=== PATIENT | male | born 1980 | race Caucasian/White ===

== ENCOUNTER → 2019-03-01 | Outpatient (CLI) | payer OTHER ==
[2019-03-03 18:06] LABS: T-TRANSGLUTAMINASE (TTG) IGA >100 U/mL (0-3); T-TRANSGLUTAMINASE (TTG) IGG 11 U/mL (0-5)
== END | disposition home or self-care (01) ==
LOC: LAB 15:23 → LAB SHORT 15:23
PROVIDERS: Internal Medicine Hematology & Oncology
DX: D50.9 Iron deficiency anemia, unspecified (principal)
CPT/HCPCS: 83516

== ENCOUNTER 2019-12-11 08:27 | Emergency (ER) | payer OTHER ==
[~2019-12-11] VITALS: Ht 182.9 cm; Wt 99.8 kg
[2019-12-11] MEDS ORDERED: ADMELOG100 UNIT/1 SC (09:28)
[2019-12-11] MEDS ORDERED: Ativan1 MG PO (09:29)
[2019-12-11 09:30] LABS: BASOPHILS ABSOLUTE AUTO 0.03 K/mm3 (0.00-0.23); BASOPHILS PERCENT AUTO 0 % (0-2); Base Excess Venous -9.4 mmol/L; Bicarbonate Venous 16.8 mmol/L (24.0-30.0); EOSINOPHILS PERCENT AUTO 0 % (0-6); Hematocrit 44.3 % (37.0-53.0); Hemoglobin 14.8 g/dL (13.5-17.5); IMMATURE GRAN ABSOLUTE AUTO 0.03 K/mm3 (0.00-0.10); IMMATURE GRAN PERCENT AUTO 0 % (0-1); LYMPHOCYTES ABSOLUTE AUTO 0.65 K/mm3 (0.84-5.20); LYMPHOCYTES PERCENT AUTO 7 % (21-46); MONOCYTES ABSOLUTE AUTO 0.42 K/mm3 (0.16-1.47); MONOCYTES PERCENT AUTO 5 % (4-13); Mean Corpuscular HGB 30.1 pg (26.0-34.0); Mean Corpuscular HGB Conc 33.4 g/dL (31.5-36.5); Mean Corpuscular Volume 90 fL (80-100); Mean Platelet Volume 10.8 fL (9.1-12.4); NEUTROPHILS ABSOLUTE AUTO 8.26 K/mm3 (1.96-9.15); NEUTROPHILS PERCENT AUTO 88 % (41-73); PCO2 Venous 41.9 mmHg (38-42); PO2 Venous 44.2 mmHg (38-42); Platelet Count 271 K/mm3 (150-400); RDW Coefficient Variation 11.9 % (11.7-14.2); RDW Standard Deviation 39.1 fL (35.1-46.3); Red Blood Cell Count 4.91 M/mm3 (4.30-5.90); White Blood Cell Count 9.39 K/mm3 (4.00-11.30); pH Blood Venous 7.24 (7.34-7.37)
[2019-12-11] MEDS ORDERED: ADMELOG SO100 UNIT/1 SC (09:30)
[2019-12-11] MEDS ORDERED: FLUV50 PO (09:32)
[2019-12-11] MEDS ORDERED: LISI20 PO (09:32)
[2019-12-11] MEDS ORDERED: OMEPRAZOLE20 MG PO (09:32)
[2019-12-11] MEDS ORDERED: HYDHCL25 PO (09:33)
[2019-12-11] MEDS ORDERED: QUET300 PO (09:33)
[2019-12-11] MEDS ORDERED: LAMO100 PO (09:36)
[2019-12-11] MEDS ORDERED: MYDAYIS ER 3737.5 MG PO (09:38)
[2019-12-11 09:46] LABS: Alanine Aminotransfer (ALT/SGP 54 U/L (12-78); Albumin, Blood 4.6 g/dL (3.4-5.0); Albumin/Globulin Ratio 1.3 (0.8-1.8); Alk Phos 110 U/L (50-136); Anion Gap 17 mmol/L (6-16); Aspartate Aminotrans (AST/SGOT 35 U/L (12-37); Bilirubin, Total 0.6 mg/dL (0.1-1.0); Blood Urea Nitrogen 45 mg/dL (8-24); Bun/Creatinine Ratio 42.5 (12.0-20.0); CO2, Blood 18 mmol/L (21-32); Calcium, Blood 9.9 mg/dL (8.5-10.1); Chloride, Blood 96 mmol/L (98-108); Creatinine, Blood 1.06 mg/dL (0.60-1.20); Globulin, Blood 3.5 g/dL (2.2-4.0); Glomerular Filtration Rate >60 (60-); Glucose, Blood 517 mg/dL (70-99); Potassium, Blood 5.5 mmol/L (3.5-5.5); Sodium, Blood 131 mmol/L (136-145); Total Protein, Blood 8.1 g/dL (6.4-8.2)
[2019-12-11 11:37] LABS: Anion Gap 18 mmol/L (6-16); Blood Urea Nitrogen 48 mg/dL (8-24); Bun/Creatinine Ratio 49.7 (12.0-20.0); CO2, Blood 16 mmol/L (21-32); Calcium, Blood 8.9 mg/dL (8.5-10.1); Chloride, Blood 100 mmol/L (98-108); Creatinine, Blood 0.97 mg/dL (0.60-1.20); Glomerular Filtration Rate >60 (60-); Glucose, Blood 499 mg/dL (70-99); Potassium, Blood 5.5 mmol/L (3.5-5.5); Sodium, Blood 134 mmol/L (136-145)
== END 2019-12-11 11:40 | disposition home or self-care (01) ==
LOC: ER 08:27
PROVIDERS: Emergency Medicine
DX: E11.10 Type 2 diabetes mellitus with ketoacidosis without coma (principal); E11.65 Type 2 diabetes mellitus with hyperglycemia; R11.2 Nausea with vomiting, unspecified
CPT/HCPCS: 36415; 80048; 80053; 82271; 82803; 83690; 85025; 86317; 86803; 87389; 96361; 96374; 96375; 99285-25; J1200; J2060; J2405; J2765; J7030

== ENCOUNTER 2021-12-30 10:06 | Day surgery (SDC) | payer MEDICARE, OTHER ==
[~2021-12-30] VITALS: Ht 185.4 cm; Wt 120.2 kg
[~2021-12-30 10:06] MED LIST: ADMELOG SO100 UNIT/1 SC; ADMELOG SO100 UNIT/2 SC; ADMELOG100 UNIT/1 SC; Ativan1 MG PO; BASAGLAR K100 UNIT/1 SC; FLUV50 PO; HYDHCL25 PO; LAMO100 PO; LISI20 PO; MYDAYIS ER 3737.5 MG PO; OMEPRAZOLE20 MG PO; QUET300 PO
--- NOTE | 2021-12-30 11:11 | NUR ---
12/30/21 Sharri العراقي CALL LIGHT WITHIN REACH; RN REPORTED TO DR. SHEARER CONCERNING PATIENT'S INSULIN PUMP; NO FURTHER ORDERS AT THIS TIME.
[2021-12-30] MEDS ORDERED: IBUP200 PO (11:15)
--- NOTE | 2021-12-30 12:45 | NUR ---
12/30/21 1245 Alejandra Nettles 1 MG EPI ADDED TO EACH OF THE FIRST 3 BAGS OF LR PER ORDER FOR IRRIGATION.
== END 2021-12-30 14:30 | disposition home or self-care (01) ==
LOC: ORSCSDS 10:06
DX: M75.111 Incomplete rotator cuff tear or rupture of right shoulder, not specified as traumatic (principal); M75.21 Bicipital tendinitis, right shoulder; M75.41 Impingement syndrome of right shoulder; S43.004A Unspecified dislocation of right shoulder joint, initial encounter; S43.431A Superior glenoid labrum lesion of right shoulder, initial encounter; E10.9 Type 1 diabetes mellitus without complications; Z79.4 Long term (current) use of insulin; I10 Essential (primary) hypertension; F90.9 Attention-deficit hyperactivity disorder, unspecified type; F41.9 Anxiety disorder, unspecified; E66.9 Obesity, unspecified; Z68.35 Body mass index [BMI] 35.0-35.9, adult; Z79.899 Other long term (current) drug therapy
CPT/HCPCS: 82947; A9270; C1713; J0171; J0690; J2250; J2405; J2704; J2765; J3010; J7120

== ENCOUNTER 2022-06-15 09:56 | Day surgery (SDC) | payer MEDICARE, OTHER ==
[~2022-06-15] VITALS: Ht 185.4 cm; Wt 113.0 kg
[~2022-06-15 09:56] MED LIST changes: +IBUP200 PO
[2022-06-15] MEDS ORDERED: LAMO100 (10:30)
--- NOTE | 2022-06-15 11:03 | NUR ---
06/15/22 1103 Coretta Mata TIME OUT AND SITE CHECK DONE WITH DR NÚÑEZ.
== END 2022-06-15 13:55 | disposition home or self-care (01) ==
LOC: ORSCSDS 09:56
PROVIDERS: Orthopaedic Surgery
PROC: 0RNK4ZZ Release Left Shoulder Joint, Percutaneous Endoscopic Approach (ICD-10-PCS; principal; 2022-06-15 11:15)
PROC: 0LQ24ZZ Repair Left Shoulder Tendon, Percutaneous Endoscopic Approach (ICD-10-PCS; principal; 2022-06-15 11:15)
PROC: 0LS44ZZ Reposition Left Upper Arm Tendon, Percutaneous Endoscopic Approach (ICD-10-PCS; principal; 2022-06-15 11:15)
DX: M75.112 Incomplete rotator cuff tear or rupture of left shoulder, not specified as traumatic (principal); M75.22 Bicipital tendinitis, left shoulder; M75.42 Impingement syndrome of left shoulder; I10 Essential (primary) hypertension; E11.9 Type 2 diabetes mellitus without complications; K21.9 Gastro-esophageal reflux disease without esophagitis; F41.9 Anxiety disorder, unspecified; F90.9 Attention-deficit hyperactivity disorder, unspecified type; Z79.4 Long term (current) use of insulin; Z79.899 Other long term (current) drug therapy
CPT/HCPCS: 82947; C1713; J0171; J0690; J1100; J2250; J2405; J2704; J2795; J3010; J7120

== ENCOUNTER 2024-08-19 13:45 | Emergency (ER) | payer OTHER ==
[~2024-08-19] VITALS: Ht 185.4 cm; Wt 104.3 kg
[~2024-08-19 13:45] MED LIST changes: +LAMO100
[2024-08-19 13:48] VITALS: BP 171/89
[2024-08-19] MEDS ORDERED: Vyvanse70 MG PO (16:10)
[2024-08-19] MEDS ORDERED: ALPR1 PO (16:10)
== END 2024-08-19 16:24 | disposition home or self-care (01) ==
LOC: ER 13:45
DX: Z76.0 Encounter for issue of repeat prescription (principal); E11.9 Type 2 diabetes mellitus without complications; Z79.4 Long term (current) use of insulin; Z79.899 Other long term (current) drug therapy
CPT/HCPCS: 99281

== ENCOUNTER 2025-01-11 11:26 | Day surgery (SDC) | payer OTHER ==
[~2025-01-11 11:26] MED LIST changes: +ALPR1 PO; +Lactated Ringer's 1,000 ML IV ONE; +Vyvanse70 MG PO; +propofoL 50 ML IV ONE
--- NOTE | 2025-01-11 12:42 | NUR ---
01/11/25 1242 Santosh Chinchilla MA TOLD THIS RN, PT STATED HE "HAD TWO PROTEIN SHAKES AND A HARD BOILED EGG" LAST NIGHT AT 1030PM. THIS RN AND MA INFORMED MD. MD ASKED FOR THE CONSISTENCY OF PATIENT'S LAST BOWEL MOVEMENT. PT STATED HIS LAST BOWEL MOVEMENT WAS "LIQUID, BROWN". PT STATED, "I AM A TYPE ONE DIABETIC, HOW WOULD ANYONE EXPECT ME NOT TO EAT ALL DAY?" THIS RN STATED FOR PROPER BOWEL PREP, PATIENTS ARE TO BE ON A CLEAR LIQUID DIET THE DAY BEFORE PROCEDURE, AND IF HIS BLOOD SUGAR WAS TO GET TOO LOW, PT WOULD BE ADVISED TO DRINK A CLEAR LIQUID WITH SUGAR LIKE SPRITE, PROPEL, OR APPLE JUICE. MD ORDERED ENEMA, PT WAS GIVEN DETAILED INSTRUCTIONS FOR ENEMA USE AND TOLD NOT TO FLUSH THE TOILET. AFTER ENEMA, JENIFFER TOLD THIS RN HIS BOWEL MOVEMENT WAS, "LIQUID, DARK BROWMN AND UNABLE TO SEE THE BOTTOM OF THE TOILET." MD WAS INFORMED AND MD STATED THE COLONOSCOPY WOULD HAVE TO BE CANCELLED AND RESCHEDULED. PT STATED "I AM WAY TOO ANXIOUS FOR THIS, I CAN'T BE PUT UNDER RIGHT NOW, CAN WE JUST RESCHEDULED THE WHOLE PROCEDURE" SINCE PATIENT WAS SCHEDULED FOR AN UPPER ENDOSCOPY AND COLONOSCOPY TODAY. MD AGREED TO PT BEING FULLY RESCHEDULED. THIS RN GAVE PT DETAILED INSTRUCTIONS ON PROPER PREP, AND ADVISED PT IF THEY HAVE ANY QUESTIONS REGAURDING PREP, THEY SHOULD CALL THE MD OFFICE FOR CLARIFICATION. PT AGREED AND WAS TOLD MD OFFICE WILL CALL TO RESCHEDULE PATIENT AT A LATER TIME.
== END 2025-01-11 12:20 | disposition home or self-care (01) ==
LOC: ORSCSDS 11:26
DX: K90.0 Celiac disease (principal); R10.13 Epigastric pain; Z53.9 Procedure and treatment not carried out, unspecified reason
CPT/HCPCS: J2704; J7120